=== PATIENT | female | born 1985 | race Caucasian/White ===

== ENCOUNTER 2020-05-28 07:08 | Outpatient (CLI) | payer BC, SELFPAY ==
[2020-05-28 07:43] LABS: Basophils Percent Auto 0.4 % (0.2-1.2); Eosinophils Absolute Auto 0.2 K/mm3 (0-0.3); Eosinophils Percent Auto 2.2 % (0-4.4); Hematocrit 34.9 % (37.0-47.0); Hemoglobin 11.8 g/dL (12.0-15.0); Immature Granulocyte Absolute 0.07 K/mm3 (0.00-0.031); Immature Granulocyte Percent A 0.7 % (0-0.5); Lymphocytes Absolute Auto 2.07 K/mm3 (0.9-3.2); Lymphocytes Percent Auto 21.3 % (18.3-44.2); Mean Corpuscular HGB Conc 33.8 g/dl (32-36); Mean Corpuscular Volume 85.7 fl (80-100); Mean Platelet Volume 10.2 fl (7.4-10.4); Monocytes Absolute Auto 0.4 K/mm3 (0.1-0.6); Monocytes Percent Auto 3.6 % (2.6-8.5); Neutrophils Percent Auto 71.8 % (45.5-73.1); Platelet Count Result 204 k/mm3 (150-375); Red Blood Count 4.07 M/mm3 (4.2-5.4); Red Cell Distribution Width 13.1 % (11.5-14.5); White Blood Count 9.7 K/mm3 (4.5-10.0)
[2020-05-28 08:35] LABS: HIV 1/2 Ab P24 Ag Result Negative (Negative)
[2020-05-28 08:43] LABS: Rubella IgG Antibody 49.1 IU/ML
[2020-05-29 09:51] LABS: Rapid Plasma Reagin Non-Reactive (NonReactive)
== END 2020-05-28 07:09 | disposition home or self-care (01) ==
PROVIDERS: PCP Obstetrics & Gynecology; Visit Provider Obstetrics & Gynecology
DX: N91.2 Amenorrhea, unspecified (principal)
CPT/HCPCS: 36415; 85025; 86592; 86703; 86762; 86850; 86900; 86901; G0432

== ENCOUNTER 2020-06-06 07:38 | Outpatient (CLI) | payer BC, SELFPAY ==
--- NOTE | ~2020-06-06 | US_ITS ---
EXAMINATION: US OB <= 14 weeks fetus DATE: 06/06/2020 08:35 INDICATION: Gestational dating TECHNIQUE: Real-time transabdominal and transvaginal obstetric ultrasound. FINDINGS: No prior studies for comparison. The uterus measures 14.9 x 9.7 x 7.6 cm. There is an intrauterine gestational sac, with pole id entified. The crown rump length measures 5.79 cm, which correlates with a estimated gestational age of 12 weeks 2 days. heart tones are identified measuring 145 BPM. Amniotic fluid is subjectiv jason normal. IMPRESSION: 1. SL IUP with an EGA of 12 weeks, 2 days (EDC by current ultrasound of 12/17/2020). Reviewed, dictated and finalized at location B. IMPRESSION: 1. SL IUP with an EGA of 12 weeks, 2 days (EDC by current ultrasound of 12/18/19 21).
== END 2020-06-06 07:39 | disposition home or self-care (01) ==
PROVIDERS: PCP Obstetrics & Gynecology; Visit Provider Obstetrics & Gynecology
DX: Z34.91 Encounter for supervision of normal pregnancy, unspecified, first trimester (principal); Z3A.12 12 weeks gestation of pregnancy
CPT/HCPCS: 76801

== ENCOUNTER → 2020-08-08 11:14 | Outpatient (CLI) | payer BC, SELFPAY ==
--- NOTE | ~2020-08-08 | US_ITS ---
EXAMINATION: US OB >= 14 weeks Fetus DATE: 08/08/2020 12:01 INDICATION: Encounter for screening during second trimester. Assess anatomy. TECHNIQUE: Multiple obstetric sonographic images performed. FINDINGS: There is a single living fetus in vertex presentation. The placenta is anterior not low-lying with c audal margin 10.5 cm from the internal cervical os. Amniotic fluid volume is subjectively normal. Fe basia heart rate of 152 beats per minute. The following anatomy was identified as normal: Ventricles, choroid plexus, falx and cava septum pellucidum Cerebellum and cisterna magna Nuchal fold Spine 4 chamber heart. Left and right ventricular outflow views are suboptimal. Diaphragm Stomach Kidneys Bladder 3 vessel cord and cord insertion Bilateral upper and lower extremities including hands and feet The following biometric data were obtained: BPD: 5.4 cm -> 22 weeks 4 days Head circumference: 20.0 cm -> 22 weeks 1 days Abdominal circumference: 16.6 cm -> 21 weeks 4 days Femur length: 3.4 cm -> 20 weeks 6 days These measurements are concordant. Head circumference to abdominal circumference ratio: 1.20 (normal range 1.06-1.23). Estimated weight: 421 g (+/-) 63 g. or 15 oz. (+/-) 2 oz. IMPRESSION: 1. Single living fetus with vertex presentation with heart rate of 152 bpm. 2. Estimated weight is 50th percentile by Hadlock criteria when 12/17/2020 is used as the JOO b ased upon earliest ultrasound performed at this institution on 06/06/20. Please correlate with clinica l information or earlier ultrasounds for most accurate JOO. 3. Suboptimal images of the left and left and right ventricular outflow tracts. Otherwise normal Feta l survey. Reviewed, dictated and finalized at location H. ADMIT IMPRESSION: 1. Single living fetus with vertex presentation with heart rate of 152 b pm. 2. Estimated weight is 50th percentile by Hadlock criteria when 1 is used as the JOO based upon [facility]. Please correlate with clinical information or earlier ultrasound s for most accurate JOO. 3. Suboptimal images of the left and left and right ventricular outflow tracts. Otherwise normal survey.
== END ==
PROVIDERS: Visit Provider Obstetrics & Gynecology
DX: Z34.92 Encounter for supervision of normal pregnancy, unspecified, second trimester (principal); Z3A.22 22 weeks gestation of pregnancy
CPT/HCPCS: 76805

== ENCOUNTER 2020-09-08 09:24 | Outpatient (CLI) | payer BC, SELFPAY ==
--- NOTE | ~2020-09-08 | US_ITS ---
EXAMINATION: US OB limited DATE: 09/08/2020 10:04 INDICATION: Encounter for other screening follow-up TECHNIQUE: Real-time ultrasound of the pelvis was performed. The interpreting radiologist was not pre sent for the study. COMPARISON: 08/08/2020 FINDINGS: There is a single living fetus in vertex presentation. The placenta is fundal/anterior. Fet al cardiac activity and movement are noted. heart rate is 135 beats per minute (bpm). The amniotic fluid index is subjectively normal. The ventricular outflow tracts of the heart appear norm al. IMPRESSION: 1. Single living fetus in vertex presentation. 2. Normal-appearing ventricular outflow tracts of the heart. Reviewed, dictated and finalized at location A. D CARE SUPERVISOR
== END 2020-09-08 09:25 | disposition home or self-care (01) ==
PROVIDERS: Visit Provider Obstetrics & Gynecology
DX: Z36.2 Encounter for other antenatal screening follow-up (principal)
CPT/HCPCS: 76815

== ENCOUNTER 2020-10-08 07:32 | Outpatient (RCR) | payer BC, SELFPAY ==
[2020-10-01 11:08] LABS: Hematocrit 34.9 % (37.0-47.0); Hemoglobin 11.5 g/dL (12.0-15.0); Mean Corpuscular Hemoglobin 29.3 pg (26-34); Mean Corpuscular Volume 88.8 fl (80-100); Mean Platelet Volume 9.8 fl (7.4-10.4); Platelet Count Result 238 k/mm3 (150-375); Red Blood Count 3.93 M/mm3 (4.2-5.4); White Blood Count 12.2 K/mm3 (4.5-10.0)
[2020-10-01 11:18] LABS: Glucose 1 Hour PP 50gm Dose 139 mg/dL
[2020-10-01 12:22] LABS: Hepatitis B Surface Antigen Negative (Negative)
[2020-10-01 12:39] LABS: Hepatitis C Virus Antibody Negative (Negative)
[2020-10-02 10:31] LABS: HIV 1/2 Ab P24 Ag Result Negative (Negative)
[2020-10-12] MEDS: RHO(D) IMMUNE GLOBULIN 300 MCG SYRINGE IM (07:17)
== END 2020-12-30 23:59 | disposition home or self-care (01) ==
LOC: ANHLAB 07:32
PROVIDERS: Visit Provider Obstetrics & Gynecology
DX: Z29.13 Encounter for prophylactic Rho(D) immune globulin (principal); Z11.4 Encounter for screening for human immunodeficiency virus [HIV]; O36.0190 Maternal care for anti-D [Rh] antibodies, unspecified trimester, not applicable or unspecified; Z67.91 Unspecified blood type, Rh negative; Z3A.00 Weeks of gestation of pregnancy not specified
CPT/HCPCS: 36415; 82947; 85027; 85461; 86703; 86803; 87340; 90384; 96372; G0432; J2790

== ENCOUNTER 2020-10-22 07:52 | Outpatient (RCR) | payer BC, SELFPAY | END 2021-01-05 14:49 | disposition home or self-care (01) | LOC: ANHDMC 07:52 | PROVIDERS: Visit Provider Obstetrics & Gynecology | DX: O24.419 Gestational diabetes mellitus in pregnancy, unspecified control (principal); Z3A.00 Weeks of gestation of pregnancy not specified; Z71.89 Other specified counseling | CPT/HCPCS: G0108 ==

== ENCOUNTER → 2020-10-22 10:50 | Outpatient (CLI) | payer BC, SELFPAY ==
--- NOTE | ~2020-10-22 | US_ITS ---
EXAMINATION: US OB follow up DATE: 10/22/2020 11:21 INDICATION: Evaluate growth TECHNIQUE: Real-time transabdominal obstetric ultrasound. FINDINGS: No prior studies for comparison. There is a single living fetus in vertex presentation. The placenta is anterior without placenta pre via. cardiac activity and movement is noted with a heart rate of 133 beats per minute. T he amniotic fluid volume is normal. CARMEN is 13 cm. The following biometric data were obtained: BPD: 86mm corresponds to gestational age 34 weeks 3 days. Head circumference: 315mm corresponds to gestational age 35 weeks 3 days. Abdominal circumference: 292mm corresponds to gestational age 33 weeks 1 days. Femur length: 65mm corresponds to gestational age 33 weeks 5 days. Estimated weight: 2250grams +/- 338grams. Estimated weight percentile is 88.4%.] IMPRESSION: 1. Single living intrauterine in vertex presentation with an estimated gestational age of 32 weeks 0 days by inititial ultrasound. Appropriate interval growth. 2. Normal placenta. Reviewed, dictated and finalized at location A. L ROLLER IMPRESSION: 1. Single living intrauterine in vertex presentation with an estimat ed gestational age of 32 weeks 0 days by inititial ultrasound. Appropriate int erval growth. 2. Normal placenta.
== END ==
PROVIDERS: Visit Provider Obstetrics & Gynecology
DX: Z36.9 Encounter for antenatal screening, unspecified (principal); Z3A.32 32 weeks gestation of pregnancy
CPT/HCPCS: 76816

== ENCOUNTER → 2020-11-19 12:55 | Outpatient (CLI) | payer BC, SELFPAY ==
--- NOTE | ~2020-11-19 | US_ITS ---
EXAMINATION: US OB follow up EXAM DATE: 11/19/2020 13:21 INDICATION: O24.419 - Gestational diabetes mellitus in , unspecified control. 3rd trimester . TECHNIQUE: Pelvic obstetrical transabdominal sonogram was performed by a technologist. There are mu ltiple grayscale and Doppler images available for interpretation. Comparison is made to prior examina tion from 10/22/2020. FINDINGS: There is a single fetus identified in vertex presentation with a heart rate of 130 beats pe r minute. The placenta is located in the anterior position. There is no sonographic evidence of retr oplacental hemorrhage identified. The amniotic fluid index is 14.3 centimeters, which is normal. BIOMETRIC DATA: Biparietal diameter (BPD): 9.2cm ----------------> 37 weeks 4 days. Head circumference (HC): 33.7 cm ----------------> 38 weeks 4 days. Abdominal circumference (AC): 34.1 cm ----------> 38 weeks 0 days. Femur length (FL): 7.3 cm --------------------------> 37 weeks 2 days. These measurements are concordant. HC/AC ratio is 0.99 (The 5th -- 95th percentile range is 0.90-1.05. Estimated weight is 3319 g +/- 498 g. This is the 92nd percentile when the currently reported clinical gestation age 36 weeks 0 days, clinical estimated date of delivery (JOO-OPE) 12/17/2020 is us ed. estimated gestational age based on measurements from this exam is 37 weeks 6 days, with an estimated date of delivery (JOO-AUA) 12/04. IMPRESSION: 1. Single fetus in vertex presentation with heart rate 130 beats per minute. 2. Estimated weight of 3319 grams, 92nd percentile using the currently reported clinical gesta tion age of 36 weeks 6 days, JOO(OPE) 12/17. 3. Normal CARMEN 14 cm. Reviewed, dictated and finalized at location A. ET MAKER IMPRESSION: 1. Single fetus in vertex presentation with heart rate 130 beats per minute. 2. Estimated weight of 3319 grams, 92nd percentile using the currently r eported clinical gestation age of 36 weeks 6 days, JOO(OPE) 12/17. 3. Normal CARMEN 14 cm.
== END ==
PROVIDERS: Visit Provider Obstetrics & Gynecology
DX: O24.419 Gestational diabetes mellitus in pregnancy, unspecified control (principal); Z3A.37 37 weeks gestation of pregnancy
CPT/HCPCS: 76816

== ENCOUNTER 2020-12-06 11:51 | Outpatient (CLI) | payer BC, SELFPAY ==
[2020-12-06 12:19] LABS: Hematocrit 33.3 % (37.0-47.0); Mean Corpuscular Hemoglobin 28.4 pg (26-34); Mean Platelet Volume 9.8 fl (7.4-10.4); Platelet Count Result 222 k/mm3 (150-375); Red Blood Count 3.87 M/mm3 (4.2-5.4); Red Cell Distribution Width 14.4 % (11.5-14.5); White Blood Count 10.8 K/mm3 (4.5-10.0)
[2020-12-08 07:03] LABS: Rapid Plasma Reagin Non-Reactive (NonReactive)
== END 2020-12-06 11:52 | disposition home or self-care (01) ==
LOC: ANHLAB 11:53
PROVIDERS: Visit Provider Obstetrics & Gynecology
DX: Z34.93 Encounter for supervision of normal pregnancy, unspecified, third trimester (principal); Z3A.00 Weeks of gestation of pregnancy not specified
CPT/HCPCS: 36415; 85027; 86592; 86850; 86880; 86900; 86901; 86902

== ENCOUNTER 2020-12-08 05:32 | Inpatient (IN) | payer BC, SELFPAY ==
[2020-12-08] VITALS (43 sets, daily range): BP systolic 101–141; BP diastolic 50–80; PULSE 68–96; RESP 16–18; TEMP 36.7–37.3; O2SAT 97–100; BMI 36.0
[2020-12-08] MEDS: LACTATED RINGERS 1,000 ML 125 ML IV CONT ×3 (06:22→08:00)
--- NOTE | 2020-12-08 06:25 | PM.IMHP ---
H&P: HPI History of Present Illness Date/Time: 12/08/20 06:25 35 y/o at 38+1 with h/o prior C/S, GDMA2, and cHTN here for repeat C/S. No complaints today Chief Complaint: prior C section Review of Systems Review of Systems: All systems reviewed & are unremarkable except as noted in HPI and below PMFSH Past Medical History Medical History (Updated 12/08/20 @ 06:29 by Kate Talley MD) Abnormal Pap smear of cervix HPV+ 2019 Acid reflux Anxiety delivery delivered X1 04/14/18 Full term female 7lbs 11oz Depression HPV (human papilloma virus) infection 2019 Intussusception Pneumonia Family History Family History Mother Patient's mother is in good health Father Patient's father is in good health Sibling Patient's sister is in good health Grandparent Diabetes mellitus Social History Social History Smoking status: Never smoker Alcohol intake: never Substance use: never Gender identity (if verbalized by the patient): Female Spiritual care concerns: No Meds Home Medications and Allergies Home Medications Medication Instructions Recorded Confirmed Type diphenhydramine HCl 50 mg/30 mL 50 mg PO Q8H PRN MDD na 05/09/20 12/05/20 History oral liquid docosahexaenoic acid 200 mg capsule 200 mg PO DAILY 05/09/20 12/05/20 History famotidine 20 mg tablet 20 mg PO DAILY 05/09/20 12/05/20 History glyburide 2.5 mg tablet 2.5 mg PO DAILY #30 tablet 11/21/20 12/05/20 Rx Allergies Allergy/AdvReac Type Severity Reaction Status Date / Time Penicillins Allergy Unknown unknown Verified 12/05/20 08:18 morphine AdvReac Intermediate nausea & Verified 12/05/20 08:18 vomiting adhesive tape AdvReac Mild Rash Verified 12/05/20 08:18 Exam Const: General: healthy appearing, no acute distress, alert and awake Resp: Auscultation: clear to auscultation bilaterally Cardio: Rate: regular rate Rhythm: regular rhythm GI: Inspection: normal to inspection and non-distended GI Palp: Yes Soft to palpation and No Tenderness to palpation present (GI) Extrem: General: no pedal edema and no calf tenderness Psych: Mental Status: mental status grossly normal Assessment and Plan Assessment and plan (1) Previous delivery affecting : Code(s): O34.219 - Maternal care for unspecified type scar from previous delivery Status: Acute Assessment and Plan: She opted and signed consent for repeat C/S after risks, benefits, complications, and alternatives were discussed. (2) Gestational diabetes mellitus (GDM) affecting : Code(s): O24.419 - Gestational diabetes mellitus in , unspecified control Status: Acute Assessment and Plan: She has been taking glyburide and has had good sugar control overall (3) Hypertension affecting in third trimester: Code(s): O16.3 - Unspecified maternal hypertension, third trimester Status: Acute Assessment and Plan: BP normal to mildly elevated. This is the indication for delivering at 38 weeks. No signs/symptoms of preeclampsia
--- NOTE | 2020-12-08 06:45 | WPDANESEPPF ---
Anes - Initial Pre Proc Eval Procedure: Operation Date: 12/08/20 07:30 Proposed Procedures p Repeat Section - Kate Talley MD Date/Time: 12/08/20 06:45 Surgeon: Kate Talley MD Pre Op Diagnosis: Repeat C/S Patient Data Age: 35 Gender: F Height: 5 ft 4 in Weight: 95.25 kg Allergies Allergy/AdvReac Type Severity Reaction Status Date / Time Penicillins Allergy Unknown unknown Verified 12/05/20 08:18 morphine AdvReac Intermediate nausea & Verified 12/05/20 08:18 vomiting adhesive tape AdvReac Mild Rash Verified 12/05/20 08:18 Home Medications Medication Instructions Recorded Confirmed Type diphenhydramine HCl 50 mg/30 mL 50 mg PO Q8H PRN MDD na 05/09/20 12/05/20 History oral liquid docosahexaenoic acid 200 mg capsule 200 mg PO DAILY 05/09/20 12/05/20 History famotidine 20 mg tablet 20 mg PO DAILY 05/09/20 12/05/20 History glyburide 2.5 mg tablet 2.5 mg PO DAILY #30 tablet 11/21/20 12/05/20 Rx Patient hx anesthesia problems: none Family hx anesthesia problems: none PMFSH Past Medical History Medical History Abnormal Pap smear of cervix HPV+ 2020 Acid reflux Anxiety delivery delivered X1 04/14/18 Full term female 7lbs 11oz Depression HPV (human papilloma virus) infection 2020 Intussusception Pneumonia Surgical History Surgical History (Updated 12/08/20 @ 06:45 by Leonel Gallego MD) History of section History of hip surgery Family History Family History Mother Patient's mother is in good health Father Patient's father is in good health Sibling Patient's sister is in good health Grandparent Diabetes mellitus Social History Social History Smoking status: Never smoker Alcohol intake: never Substance use: never Gender identity (if verbalized by the patient): Female Spiritual care concerns: No Anes - Eval Final PreProcedure Day of Procedure 12/08/20 06:45 Patient weight: overweight Heart: regular rate and rhythm Lungs: clear to auscultation Airway: Mallampati scale class 1 Neurological: alert and oriented Last oral intake: >/= 8 hours ASA classification: II Emergent: no Anesthetic plan: proceed Anesthesia type and monitoring: regional spinal and standard monitoring Informed Consent: The patient's anesthetic plan and its attendant risks and benefits were discussed with the patient/family/POA. Questions were solicited and answers provided to the satisfaction of the patient/family/POA.
[2020-12-08 06:53] LABS: Glucose Point of Care 112 (65-105)
[2020-12-08] MEDS: CLINDAMYCIN 900 MG/D5W 50 ML 900 MG/50 ML PIGGYBACK 50 MG IVPB (07:15)
--- NOTE | 2020-12-08 07:29 | WPDHPUPDATE1 ---
History and Physical Update Update Date/Time: 12/08/20 07:29 History and Physical has been reviewed, including an updated exam of the patient. There are NO changes in the patient's condition. Risks, benefits, and alternatives have been discussed and questions answered. Patient agrees to proceed with procedure.
--- NOTE | 2020-12-08 07:46 | P.OP_ITS ---
Procedure Note - Detailed Date of procedure: 12/08/20 Pre-op diagnosis: Repeat C/S Prior C section, GDMA2, chronic HTN Post-op diagnosis: same Procedure performed: Repeat LTCS Description of procedure: She was taken to the operating room where spinal anesthesia was obtained and found to be adequate. She was prepared and draped in the normal sterile fashion in the dorsal supine position with a leftward tilt. A Pfannenstiel skin incision was made over her prior incision with a scalpel and extended to the underlying layer of fascia. The fascia was incised in the midline with the scalpel and extended laterally with the Cisse scissors. The underlying rectus muscles were dissected off bluntly and sharply. The peritoneum was entered sharply and extended inferiorly and superiorly with good visualization of the bladder. The bladder blade was inserted. The vesicouterine peritoneum was tented up and entered sharply with the Metzenbaum scissors. The bladder flap was created sharply. The bladder blade was gianfranco nserted. The lower uterine segment was incised in a transverse fashion with the scalpel. The incision was digitally stretched in a cephalad caudad direction. The membranes were ruptured with clear fluid noted. The 's head was delivered atraumatically and bulb suctioned on the maternal abdomen. The shoulders and body were delivered easily. The cord was clamped x2 and cut. The infant was passed to the waiting nurse. Cord gas and cord blood was obtained. The placenta was manually extracted. The uterus was exteriorized and cleared of all clots and debris. The uterine incision was closed using 0 Vicryl in a running locked fashion. The uterus was then returned to the abdomen. The gutters were cleared of all clot and debris. The uterine incision was reinspected and was noted to be hemostatic. There were a few raw areas that were bleeding slightly on the anterior surface of the uterus. These were controlled with 0 Vicryl [id number] sutures as well as cautery. The rectus muscles were then inspected. Any bleeding points were cauterized. The rectus muscles were reapproximated using an 0 Vicryl [id number] suture. The fascia was then closed using 0 Vicryl in a running fashion. The subcutaneous tissue was irrigated. Any bleeding points were cauterized. The skin was closed using Insorb absorbable lalo. She tolerated the procedure well. Sponge, lap, needle, and instrument counts were correct x2. She was taken to the recovery area in stable condition. Anesthesia: spinal Surgeon: Kate Talley MD Estimated blood loss (mL): 490 Drains: Yes (Henriquez) Packing: No Pathology: yes Complications: No immediate complications Condition: stable Disposition: floor Findings: Male infant, cephalic, Apgars 8/9; 8# 1oz; normal uterus, tubes, and ovaries
[2020-12-08] MEDS: OXYTOCIN 30 UNITS/NS 500 ML 30 UNITS/500 ML BAG 125 UNITS IV CONT (11:03)
--- NOTE | 2020-12-08 12:45 | PC.NURSE ---
Consult with pt., to discuss pumping due to infant in Level II. Mother wishes to pump using her own pump. Instructions given on breast pump care and usage, pumping schedule, nipple care, and collection and storage of breast milk. Encouraged [id number], breast massage and manual expression to stimulate supply. Assessed patient for correct flange size 27 mm, placement and draw. Patient verbalizes and demonstrates understanding of instructions.
--- NOTE | 2020-12-08 18:02 | OBPPTRN ---
1137 Patient transferred to post room #291 via stretcher. Support person present. Oriented to unit, room, information board, rooming in, admission packet and security measures. Patient verbalizes understanding.
--- NOTE | 2020-12-08 18:08 | PC.NURSE ---
1650 went to first floor nursery per W/C to visit . 1745 returned to room 291
[2020-12-08] MEDS: MULTIVIT/MIN/PREN/FOL AC/IRON TABLET 1 TAB PO (19:12)
[2020-12-08] MEDS: DOCUSATE SODIUM 100 MG CAPSULE PO (19:12)
[2020-12-08] MEDS: IBUPROFEN 600 MG TABLET PO (19:13)
--- NOTE | 2020-12-08 19:20 | PC.NURSE ---
Patient down to first floor nursery to see .
[2020-12-08] MEDS: diphenhydrAMINE HCl INJ 50 MG/ML VIAL 25 MG IV PUSH (22:32)
[2020-12-09] VITALS: BP 93/50; PULSE 76; RESP 16; TEMP 37; O2SAT 98
[2020-12-09] MEDS: IBUPROFEN 600 MG TABLET PO ×4 (02:49→23:31)
[2020-12-09 03:50] VITALS: BP 100/52; PULSE 82; RESP 16; TEMP 36.9; O2SAT 99
[2020-12-09 04:14] LABS: Basophils Percent Auto 0.2 % (0.2-1.2); Eosinophils Absolute Auto 0.2 K/mm3 (0-0.3); Eosinophils Percent Auto 1.1 % (0-4.4); Hematocrit 30.3 % (37.0-47.0); Immature Granulocyte Percent A 0.7 % (0-0.5); Lymphocytes Absolute Auto 2.81 K/mm3 (0.9-3.2); Lymphocytes Percent Auto 20.6 % (18.3-44.2); Mean Corpuscular Volume 84.9 fl (80-100); Mean Platelet Volume 9.5 fl (7.4-10.4); Monocytes Absolute Auto 0.7 K/mm3 (0.1-0.6); Monocytes Percent Auto 5.2 % (2.6-8.5); Neutrophils Absolute Auto 9.9 K/mm3 (1.3-6.7); Neutrophils Percent Auto 72.2 % (45.5-73.1); Platelet Count Result 254 k/mm3 (150-375); Red Blood Count 3.57 M/mm3 (4.2-5.4); Red Cell Distribution Width 14.2 % (11.5-14.5); White Blood Count 13.7 K/mm3 (4.5-10.0)
--- NOTE | 2020-12-09 08:11 | P.PNOB_ITS ---
OB - PN: Subj Subjective Date/time seen: 12/09/20 08:11 Patient comments: no complaints, pain well controlled, incisional pain, tolerating diet, flatus present and other (Lochia similar to menses) baby status: doing well OB - PN: Obj Data Labs CBC & Chem 7: 12/09/20 04:08 Labs: Laboratory Results - last 24 hr 12/09/20 04:08 WBC 13.7 H RBC 3.57 L Hgb 10.0 L Hct 30.3 L MCV 84.9 MCH 28.0 MCHC 33.0 RDW 14.2 Plt Count 254 MPV 9.5 Immature Gran % (Auto) 0.7 H Neut % (Auto) 72.2 Lymph % (Auto) 20.6 [place] % (Auto) 5.2 Eos % (Auto) 1.1 Baso % (Auto) 0.2 Lymph # (Auto) 2.81 [place]on # (Auto) 0.7 H Eos # (Auto) 0.2 Baso # (Auto) 0.0 Abs Immat Gran (auto) 0.10 H Absolute Neuts (auto) 9.9 H Absolute Nucleated RBC 0.0 Nucleated RBC % 0.0 OB - PN A/P Plan day: 1 (s/p C section, doing well) Plan: routine care Time Spent With Patient Time: Total time spent is greater than 50% in coordination of care (as documented) at patient's floor/unit and/or counseling patient: Exam Const: General: no acute distress Resp: Auscultation: clear to auscultation bilaterally Cardio: Rate: regular rate Rhythm: regular rhythm GI: Inspection: non-distended, incision (Intact without erythema, drainage, or induration) and other (Fundus firm and nontender at umbilicus) GI Palp: Yes abdominal tenderness (appropriate ) and Yes Soft to palpation Extrem: General: no edema
[2020-12-09 08:15] VITALS: BP 115/59; PULSE 86; RESP 16; TEMP 36.7; O2SAT 100
[2020-12-09] MEDS: MULTIVIT/MIN/PREN/FOL AC/IRON TABLET 1 TAB PO (09:30)
[2020-12-09] MEDS: SIMETHICONE 80 MG TAB.CHEW PO ×2 (09:31→15:25)
[2020-12-09] MEDS: DOCUSATE SODIUM 100 MG CAPSULE PO ×2 (09:31→15:25)
--- NOTE | 2020-12-09 11:35 | PC.NURSE ---
Consult with pt., mother has to breast. Mother was able to independently latch with correct positioning/alignment in cross cradle, holding breast in U hold and asymmetrical latch on. was latch correctly. Infant nursed eagerly, with steady draws and frequent swallowing noted. Reviewed signs of a correct latch, effective nursing and suck swallow ratio. Infant was able to maintain latch without discomfort to mother. Nipple care reviewed. Suggested mother stimulate while feeding to keep infant awake and nursing effective for increased intake, stimulate supply and assist with maintaining deep latch. Demonstrated how to adjust latch more deeply while feeding. Instructed mother to call out for RN assistance if she is unable to latch for feeding or she has discomfort with nursing. Instructed feeding should be initiated three hours from start of last feeding or if feeding cues are noted before. Mother voiced understanding of information shared.
[2020-12-09] MEDS: ACETAMINOPHEN 325 MG TABLET 650 MG PO (11:36)
[2020-12-09 13:06] VITALS: BP 106/62; PULSE 66; RESP 18; TEMP 36.7; O2SAT 97
--- NOTE | 2020-12-09 14:47 | WPDANLDPN2 ---
Anes-Prog Note L&D Date/Time: 12/09/20 14:47 Comfortable throughout: section Neuraxial method: spinal Epidural/Spinal procedure site: clean & non-tender Neuro status: Neuro function grossly intact. Cardiovascular status: normal Respiratory status: normal Airway patency: baseline Mental status: baseline Post-Op hydration status: normal Vital Signs: Last Vital Signs Temp 98.1 F 12/09/20 13:06 Pulse 66 12/09/20 13:06 Resp 18 12/09/20 13:06 BP 106/62 12/09/20 13:06 Pulse Ox 97 12/09/20 13:06 Pain score (VAS): 0/10 I/O: Intake & Output 12/08/20 12/09/20 12/09/20 23:59 07:59 15:59 Intake Total 1500 1200 700 Output Total 2200 1500 700 Balance -700 -300 0 Post-procedural complaints: none Patient feedback: Patient satisfied with anesthetic care.
--- NOTE | 2020-12-09 14:48 | WPDANLDNPN2 ---
Anes-Prog Note L&D-Neuraxial Date/Time: 12/09/20 14:48 Neuraxial medications: intrathecal PF morphine Opiod-related complaints: none Patient feedback: Patient satisfied with post-operative pain management.
[2020-12-09] MEDS: HYDROcodone/acetaminophen (*CRX) 5-325 MG TABLET 1 TAB PO (18:42)
[2020-12-09 20:00] VITALS: BP 102/53; PULSE 81; RESP 16; TEMP 37; O2SAT 99
[2020-12-10] MEDS: HYDROcodone/acetaminophen (*CRX) 5-325 MG TABLET 1 TAB PO (02:36)
--- NOTE | 2020-12-10 07:34 | PM.OBPNVD ---
OB - PN: Subj Subjective Date/time seen: 12/10/20 07:34 Patient comments: no complaints, pain well controlled, tolerating diet, flatus present and other (Ambulating and voiding without problems. Lochia similar to menses) baby status: doing well OB - PN: Obj Data Labs CBC & Chem 7: 12/09/20 04:08 OB - PN A/P Plan day: 2 (s/p C section, doing well) Plan: routine care and discharge home (Follow up in 1 week) Time Spent With Patient Time: Total time spent is greater than 50% in coordination of care (as documented) at patient's floor/unit and/or counseling patient: Time with patient: less than 15 minutes Exam Const: General: no acute distress Resp: Auscultation: clear to auscultation bilaterally Cardio: Rate: regular rate Rhythm: regular rhythm GI: Inspection: non-distended, incision (Intact without erythema, drainage, or induration) and other (Fundus firm and nontender below umbilicus) GI Palp: Yes abdominal tenderness (appropriate) and Yes Soft to palpation Extrem: General: no edema
--- NOTE | 2020-12-10 07:35 | PM.OBDSVD ---
DS: Admitting Diagnosis Admitting Diagnosis Admitting Diagnosis: Prior C section DS: Discharge Diagnosis Discharge Diagnosis (1) delivery delivered: Code(s): O82 - Encounter for delivery without indication Status: Acute OB - DS: Summary OB Procedures : None OB Procedures Intrapartum: low cervical, transverse OB Procedures: : None Peripartum Data Delivery Method: Section Procedures: Procedures Operation Date: 12/08/20 07:30 Actual Procedures Side Surgeon p Repeat Section Not Applicable Kate Talley MD complications: none Status at Discharge Functional status at discharge: independent ambulation Overall status at discharge: patient is progressing back to baseline Time Spent with Patient Time attestation: Total time spent providing and/or coordinating discharge services: Time spent: Less than 30 minutes DS: Data Data Completed and Pending Pending studies at discharge: Pending at discharge 12/08/20 09:06 Surgical [PTH] Routine Discharge Plan Discharge Attending physician on discharge: Kate Talley Consulting providers: Quinten Rivera Discharging Clinician: Kate Talley Patient Disposition: Home, Self-Care Activity: may shower and pelvic rest Diet: as tolerated Wound Care Instructions: incision open to air Patient Instructions: Antibiotic Form Stand Alone Forms: General Discharge Information Follow-up/Referrals: Kate Talley MD [Physician] - 1 Week Discharge Medications: New hydrocodone-acetaminophen 5-325 mg Tablet 1 tablet PO Q4H PRN (Reason: Moderate Pain (4-6)) Qty: 30 RF: 0 ibuprofen 600 mg Tablet 600 mg PO Q6H PRN (Reason: Cramping) Qty: 60 RF: 0 Continued Unisom (diphenhydramine) 50 mg/30 mL liquid 50 mg PO Q8H MDD na PRN (Reason: Insomnia) RF: 0 DHA 200 mg capsule 200 mg PO DAILY RF: 0 famotidine [Pepcid] 20 mg tablet 20 mg PO DAILY RF: 0 Discontinued glyburide 2.5 mg tablet 2.5 mg PO DAILY Qty: 30 RF: 0 Date of admission: 12/08/20 05:32 Primary Care Provider: PHYSICIAN,AIR INTERCEPT CONTROLLER SUPERVISOR Admitting Provider: Kate Talley Attending physician on admission: Kate Talley Condition: Stable
[2020-12-10 08:30] VITALS: BP 112/69; PULSE 85; RESP 18; TEMP 37.2; O2SAT 98
[2020-12-10] MEDS: DOCUSATE SODIUM 100 MG CAPSULE PO (09:33)
[2020-12-10] MEDS: MULTIVIT/MIN/PREN/FOL AC/IRON TABLET 1 TAB PO (09:33)
[2020-12-10] MEDS: IBUPROFEN 600 MG TABLET PO (09:34)
[2020-12-10] MEDS: TETANUS,DIPHTHERIA,AC PERTUSSIS ADULT (0.5 ML) BOOSTRIX IM (09:35)
--- NOTE | 2020-12-10 10:10 | PC.NURSE ---
Consult with pt., mother is latching independently without difficulties or discomfort. Mother reports infant had a long period without a wet diaper, ICP was called. No order obtained, infant had a wet diaper within a few hours. Mother is feeding as required and waking to feed if needed. Reviewed transition to breast milk, signs of adequate intake, and engorgement/relief. Requested mother call out for observation of feeding.
[2020-12-12 11:04] VITALS: BP 130/77; PULSE 81; RESP 16; TEMP 36.9; O2SAT 100
== END 2020-12-10 15:58 | disposition home or self-care (01) | DRG 787 ==
LOC: ANHLDR 05:35 → ANHOB2 11:39
PROVIDERS: Admitting Provider Obstetrics & Gynecology; Visit Provider Obstetrics & Gynecology
PROC: 10D00Z1 Extraction of Products of Conception, Low, Open Approach (ICD-10-PCS; CPT 59514; principal; 2020-12-08 07:30)
DX: O34.211 Maternal care for low transverse scar from previous cesarean delivery (principal); O10.92 Unspecified pre-existing hypertension complicating childbirth; Z37.0 Single live birth; Z3A.38 38 weeks gestation of pregnancy; O24.429 Gestational diabetes mellitus in childbirth, unspecified control
CPT/HCPCS: 36415; 82948; 85025; 88307; 90715; A9270; J0131; J1100; J1200; J2274; J2405; J2590; J7120

== ENCOUNTER 2021-03-04 07:56 | Outpatient (CLI) | payer BC, SELFPAY ==
--- NOTE | ~2021-03-04 | US_ITS ---
EXAMINATION: US right upper quadrant EXAM DATE: 03/04/2021 08:20 INDICATION: Elevated liver enzymes . TECHNIQUE: Multiple grayscale and Doppler images of the abdomen right upper quadrant were obtained (b y a technologist who performed the scan) and subsequently reviewed. Comparison is made to prior exami nation from 08/20/2013. FINDINGS: The pancreatic head and body are normal in appearance. The pancreatic tail is not visualized. Mildl y echogenic liver parenchyma, hepatic steatosis. There are no focal liver lesions identified. Ther e is no evidence of intrahepatic biliary duct dilation. Portal venous flow was seen in the hepatoped al, normal direction and has normal Doppler waveform. No right-sided hydronephrosis. Common bile duct measures 3 mm, which is normal. The gallbladder wall is normal in thickness, with ex pected amount of distention. No sonographic evidence of pericholecystic fluid. There is no cholelit hiases. Technologist performing exam reports patient did not demonstrate sonographic Hall's sign. Please note that this sign is less reliable in patients who have received pain medication. IMPRESSION: 1. Hepatic steatosis. Reviewed, dictated and finalized at location B. IMPRESSION: 1. Hepatic steatosis.
== END 2021-03-04 07:57 ==
LOC: MICIMG 07:57
PROVIDERS: PCP Internal Medicine; Visit Provider Internal Medicine
DX: R74.8 Abnormal levels of other serum enzymes (principal); K76.0 Fatty (change of) liver, not elsewhere classified
CPT/HCPCS: 76705

== ENCOUNTER → 2021-06-17 15:18 | Outpatient (CLI) | payer BC, SELFPAY ==
--- NOTE | ~2021-06-17 | XR_ITS ---
XR hand LT min 3V DATE: 06/17/2021 15:33 INDICATION: Left hand pain TECHNIQUE: 3 views COMPARISON: None FINDINGS: No fracture or dislocation, periosteal reaction or bone destruction, erosive change, chondr ocalcinosis or significant joint space narrowing. IMPRESSION: Negative Reviewed, dictated and finalized at location B. IMPRESSION: Negative
== END ==
PROVIDERS: PCP Internal Medicine; Visit Provider Internal Medicine
DX: M79.642 Pain in left hand (principal)
CPT/HCPCS: 73130

== ENCOUNTER → 2022-07-14 09:52 | Outpatient (CLI) | payer BC, SELFPAY ==
--- NOTE | ~2022-07-14 | XR_ITS ---
XR lumbar spine 2-3V DATE: 07/14/2022 10:04 INDICATION: Lumbago, left sciatica for 3 weeks. No injury. TECHNIQUE: AP, lateral, coned lateral lumbosacral views COMPARISON: None FINDINGS: Normal alignment of the lumbar spine. No fracture or bone destruction or spondylolisthesis. Lumbar and lumbosacral interspaces are well preserved. The lumbar pedicles are intact. The sacroilia c joints are normal. There is a prominent amount of fecal material throughout the colon. IMPRESSION: Negative lumbar spine Reviewed, dictated and finalized at location A. IMPRESSION: Negative lumbar spine
== END ==
PROVIDERS: PCP Internal Medicine; Visit Provider Internal Medicine
DX: M54.42 Lumbago with sciatica, left side (principal)
CPT/HCPCS: 72100

== ENCOUNTER 2022-07-28 13:15 | Outpatient (CLI) | payer BC, SELFPAY ==
--- NOTE | ~2022-07-28 | MMUS_ITS ---
EXAMINATION: MM diagnostic shahid LT w matthew, US breast LT limited HISTORY: 1-2:00 left breast lump TECHNIQUE: Full field and spot 3-D tomosynthesis images of the left breast were performed and synthet ic 2-D images were generated. CAD analysis was submitted and interpreted. High resolution upper outer and lower-outer quadrant left breast ultrasound was performed. COMPARISON: None BREAST PARENCHYMAL COMPOSITION: The breasts are heterogeneously dense, which may obscure small masses . FINDINGS: MAMMOGRAPHIC FINDINGS: The heterogeneously dense stroma in the upper outer quadrant of the left breast prevents confident ex clusion of any mass. Given the clinical complaint of lump at 111 2:00, ultrasound examination was per formed. No architectural distortion, skin thickening or retraction or malignant calcification is detected. ULTRASOUND: 2:00 subareolar area: There is an irregular hypoechoic mass measuring approximately 7 x 15 mm dimensi on. Ultrasound-guided biopsy is recommended. IMPRESSION: 1. Suspicious irregular hypoechoic mass at 2:00 subareolar area, corresponding to clinically palpable lump 2. Ultrasound-guided biopsy is recommended BI-RADS category 4, suspicious findings. Dr. Grover telephoned the report and ultrasound-guided biopsy recommendation on 07/28/2022 at 1453 hours to [facility]. Reviewed, dictated and finalized at location A. 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 Suspicious irregular hypoechoic mass at 2:00 subareolar area, corresponding to clinically palpable lump 2. Ultrasound-guided biopsy is recommended BI-RADS category 4, suspicious findings. Dr. Grover telephoned the report and ultrasound-guided biopsy recommendation on 09/27/2021 at 1453 hours to [facility].
== END 2022-07-28 13:16 | disposition home or self-care (01) ==
PROVIDERS: PCP Internal Medicine; Visit Provider Nurse Practitioner
DX: N63.20 Unspecified lump in the left breast, unspecified quadrant (principal); R92.8 Other abnormal and inconclusive findings on diagnostic imaging of breast
CPT/HCPCS: 76642; 77061; 77065; G0279